=== PATIENT | female | born 1985 | race African-American/Black ===

== ENCOUNTER 2024-02-27 10:08 | Emergency (ER) | payer MEDICAID ==
[~2024-02-27] VITALS: Ht 160 cm; Wt 130.0 kg
[2024-02-27 10:18] VITALS: BP 139/88
[2024-02-27 12:24] VITALS: BP 128/81
[2024-02-27] MEDS ORDERED: FLOXIN OTIC0.3 % AD (13:08)
[2024-02-27 13:16] VITALS: BP 128/81
== END 2024-02-27 13:20 | disposition home or self-care (01) ==
LOC: ED 10:08
DX: H60.91 Unspecified otitis externa, right ear (principal); J45.909 Unspecified asthma, uncomplicated; I34.0 Nonrheumatic mitral (valve) insufficiency